=== PATIENT | female | born 1980 | race Caucasian/White ===

== ENCOUNTER → 2018-12-22 | Outpatient (CLI) | payer OTHER | LOC: RAD 07:09 | DX: Z12.31 Encounter for screening mammogram for malignant neoplasm of breast (principal) ==

== ENCOUNTER → 2019-01-19 | Outpatient (CLI) | payer OTHER | LOC: MRI 07:45 | DX: M54.16 Radiculopathy, lumbar region (principal); M54.6 Pain in thoracic spine; M25.551 Pain in right hip ==

== ENCOUNTER → 2020-05-12 | Outpatient (CLI) | payer OTHER | LOC: CAT 08:36 | PROVIDERS: ATTEND Otolaryngology Plastic Surgery within the Head & Neck | DX: J34.2 Deviated nasal septum (principal); J32.9 Chronic sinusitis, unspecified; H69.83 Other specified disorders of Eustachian tube, bilateral; H90.3 Sensorineural hearing loss, bilateral ==

== ENCOUNTER → 2020-07-11 | Outpatient (CLI) | payer OTHER | LOC: LAB 08:24 | PROVIDERS: ATTEND Anesthesiology | DX: Z01.812 Encounter for preprocedural laboratory examination (principal); Z20.828 Contact with and (suspected) exposure to other viral communicable diseases ==

== ENCOUNTER 2020-08-23 18:57 | Emergency (ER) | payer OTHER ==
[~2020-08-23] VITALS: Ht 157.5 cm; Wt 58.1 kg
[2020-08-23] MEDS ORDERED: ALPRAZOLAM 0.0.25 M1 PO (20:22)
[2020-08-23] MEDS ORDERED: LAMOTRIGINE150 MG PO (20:22)
[2020-08-23 22:29] VITALS: BP 133/70
--- NOTE | 2020-08-24 07:18 | EKG ---
[facility] [address] [address] ELECTROCARDIOGRAM REPORT Name: SUSAN ROY [facility]: [id number] Admission: 08/23/20 Attend Phys: Discharge: 08/23/20 Date of : 76 Report #: [id number] [facility] ED Test Date: 2020-08-23 Test Time: 21:39:41 Pat Name: SUSAN ROY Department: Room: Gender: F Concrete Curer: noy huitron rn : 1980 Requested By: Presley Damian Order Number: [id number] MD: Eduin Alan Measurements Intervals [place] Rate: 97 P: 73 IA: 133 QRS: 64 QRSD: 83 T: 31 QT: 351 QTc: 446 Interpretive Statements Sinus rhythm LAE, consider biatrial enlargement Probable left ventricular hypertrophy No previous ECG available for comparison Electronically Signed On 08-24-2020 7:17:54 BACKUP ADMINISTRATIVE COORDINATOR by Eduin Alan [email or web address] <ELECTRONICALLY SIGNED> By: Eduin Alan MD, [facility] 08/24/20 0717 2139 2139 Eduin Alan MD, FACC /EPI
== END 2020-08-23 22:29 | disposition home or self-care (01) ==
LOC: ER 18:57
DX: T88.1XXA Other complications following immunization, not elsewhere classified, initial encounter (principal); M79.18 Myalgia, other site; T50.Z95A Adverse effect of other vaccines and biological substances, initial encounter; R00.2 Palpitations; R53.1 Weakness; F31.9 Bipolar disorder, unspecified; Z90.89 Acquired absence of other organs; Z79.899 Other long term (current) drug therapy; Z88.1 Allergy status to other antibiotic agents; Z88.8 Allergy status to other drugs, medicaments and biological substances; Y92.89 Other specified places as the place of occurrence of the external cause

== ENCOUNTER → 2020-11-24 | Outpatient (CLI) | payer OTHER ==
[~2020-11-24] MED LIST: ALPRAZOLAM 0.0.25 M1 PO; LAMOTRIGINE150 MG PO
[2020-11-24 08:46] LABS: ABSOLUTE NEUTROPHILS 5.8 thou/uL (1.4-8.2); BASOPHILS 0.9 % (0.0-2.0); HEMATOCRIT 42.8 % (37.0-47.0); HEMOGLOBIN 14.4 gm/dL (12.0-15.0); MCH 29.3 pg (26.0-34.0); MCHC 33.7 g/dL (28.0-37.0); MONOCYTES 7.6 % (1.0-8.0); PLATELET COUNT 309 thou/uL (150-400); POLYS 68.5 % (36.0-66.0); RBC 4.92 mil/uL (4.20-5.00); RDW 14.5 % (10.5-14.5); WBC 8.4 thou/uL (4.0-11.0)
[2020-11-24 08:49] LABS: URINE BILIRUBIN NEGATIVE (Negative); URINE BLOOD NEGATIVE (Negative); URINE CLARITY SL CLOUDY; URINE COLOR YELLOW; URINE GLUCOSE-RANDOM* NEGATIVE (Negative); URINE KETONES NEGATIVE (Negative); URINE LEUKOCYTES-REFLEX 2+ (Negative); URINE NITRITE-REFLEX NEGATIVE (Negative); URINE PROTEIN (DIPSTICK) NEGATIVE (Negative); URINE SPECIFIC GRAVITY 1.015 (1.005-1.035); URINE UROBILINOGEN 0.2 E.U./dl (0.2-1.0)
[2020-11-24 09:03] LABS: ALBUMIN 3.5 g/dL (3.4-5.0); ANION GAP 7 mmol/L (7-16); BUN 13 mg/dL (7-18); CALCIUM 9.1 mg/dL (8.5-10.1); CHLORIDE 102 mmol/L (98-107); CHOLESTEROL 180 mg/dL (<200); CO2 28 mmol/L (21-32); CREATININE 0.7 mg/dL (0.6-1.0); GLUCOSE 101 mg/dL (74-106); HDL CHOLESTEROL 79 mg/dL (>40); LDL CHOLESTEROL 81 mg/dL (<100); SGOT 15 U/L (15-37); SGPT 18 U/L (30-65); SODIUM 137 mmol/L (136-145); TC:HDL 2.3 Ratio (Not establshd); TOTAL BILIRUBIN 1.1 mg/dL (0.2-1.0); TOTAL PROTEIN 7.7 g/dL (6.4-8.2); TRIGLYCERIDE 101 mg/dL (<150); VLDL 20 mg/dL (<40)
[2020-11-24 09:49] LABS: BACTERIA-REFLEX 1-9 Few /HPF (None Seen); CASTS None Seen /LPF (None Seen); CRYSTALS None Seen /LPF (None Seen); SQUAMOUS >10 Many /LPF (0-3); URINE RBC 0-2 Rare /HPF (0-2); URINE WBC-REFLEX 6-15 Few /HPF (0-5)
== END ==
LOC: LAB 08:09
PROVIDERS: ATTEND Family Medicine
DX: Z00.00 Encounter for general adult medical examination without abnormal findings (principal); M54.5 Low back pain; G89.29 Other chronic pain